=== PATIENT | female | born 1950 | race Caucasian/White ===

== ENCOUNTER → 2017-01-26 | Outpatient (CLI) | payer OTHER, BC ==
--- NOTE | 2017-01-27 07:54 | MAMMOGRAPHY REPORT ---
BILATERAL DIGITAL SCREENING MAMMOGRAM TOMOSYNTHESIS WITH CAD: 01/26/2017 CLINICAL HISTORY: Routine screening. Patient has no complaints. TECHNIQUE: Breast tomosynthesis in addition to standard 2D mammography was performed. Current study was also evaluated with a Computer Aided Detection (CAD) system. COMPARISON: Comparison is made to exams dated: 03/20/2012 mammogram, 03/10/2010 mammogram, 03/28/2014 m ammogram, 04/05/2014 mammogram, 03/26/2013 mammogram, and 03/11/2011 mammogram. BREAST COMPOSITION: There are scattered areas of fibroglandular density in both breasts. FINDINGS: There is a small cluster of microcalcifications in the upper outer middle one third of the left breast, for which additional spot magnification views are recommended. There is evidence of prior bilateral reduction mammoplasty. The glandular pattern is similar to prio r exams. A few other benign-appearing rim calcifications are seen anteriorly in both breasts near th e periareolar incisions. No other suspicious mass, architectural distortion or cluster of microcalcif ications is seen. IMPRESSION: ACR BI-RADS CATEGORY 0: INCOMPLETE EVALUATION: NEED ADDITIONAL IMAGING EVALUATION The small cluster of microcalcifications in the left upper outer quadrant need additional imaging angelic luation. The patient will be called to schedule an appointment. Approximately 10% of breast cancers are not detected with mammography. A negative mammographic report should not delay biopsy if a clinically suggestive mass is present. Jojo Hammond M.D. ay/:01/26/2017 16:15:36 Intelligence Chief: Leila WOODS(R)(M), [facility] letter sent: Addl Imaging 0 BI-RADS Code: ACR BI-RADS Category 0: Incomplete Evaluation: Need Additional Imaging Evaluation
== END | disposition home or self-care (01) ==
LOC: C.MAMM 15:06
PROVIDERS: ATTEND Internal Medicine
DX: Z12.31 Encounter for screening mammogram for malignant neoplasm of breast (principal); R92.0 Mammographic microcalcification found on diagnostic imaging of breast

== ENCOUNTER → 2017-02-02 | Outpatient (CLI) | payer OTHER, BC ==
--- NOTE | 2017-02-02 15:18 | MAMMOGRAPHY REPORT ---
UNILATERAL LEFT DIGITAL DIAGNOSTIC MAMMOGRAM: 02/02/2017 CLINICAL HISTORY: Callback from screening mammogram for left breast calcifications. TECHNIQUE: Spot magnification left CC and ML views were obtained. COMPARISON: Comparison is made to exams dated: 01/26/2017 mammogram - [facility], 04/05/2014 mammogram, 03/28/2014 mammogram, 03/26/2013 mammogram, 03/20/2012 mammogram, and 03/10/2010 mamm ogram. BREAST COMPOSITION: There are scattered areas of fibroglandular density in the left breast. FINDINGS: Spot magnification views of the left breast demonstrate a small 8 mm group of punctate and amorphous calcifications in the left upper outer quadrant. The calcifications are indeterminate and stereotactic biopsy is recommended for further evaluation. A few other scattered benign-appearing ca lcifications are seen in the left breast on the spot magnification views. IMPRESSION: ACR BI-RADS CATEGORY 4: SUSPICIOUS Grouped calcifications in the left upper outer quadrant are indeterminate and stereotactic biopsy is recommended for further evaluation. A phone call was made to the physician's office to confirm faxed results were received. The patient has been verbally notified of the results. She tentatively scheduled the biopsy before leaving the [facility]. Approximately 10% of breast cancers are not detected with mammography. A negative mammographic report should not delay biopsy if a clinically suggestive mass is present. Melany Herrera M.D. /:02/02/2017 14:31:20 Dentistry Professor: Leila Dc [facility] letter sent: Abnormal 4/5 BI-RADS Code: ACR BI-RADS Category 4: Suspicious
== END | disposition home or self-care (01) ==
LOC: C.MAMM 13:35
PROVIDERS: ATTEND Internal Medicine
DX: R92.0 Mammographic microcalcification found on diagnostic imaging of breast (principal); R92.1 Mammographic calcification found on diagnostic imaging of breast

== ENCOUNTER → 2017-02-04 | Outpatient (CLI) | payer OTHER, BC ==
--- NOTE | 2017-02-04 13:07 | Discharge Instructions ---
Discharge Instructions Procedure Procedure Date: Feb 04, 2017. Reason for visit: Left Calcifications. Discharge Discharge Date: Feb 04, 2017. Discharge Diagnosis: status post breast biopsy Instructions Activity Recommendations: Additional Limitations (see below) Return to School/Work: no limitations Recommended Home Diet: No Limitations Provider Instructions: ACTIVITY RECOMMENDATIONS: * No lifting, pushing, pulling or exercising the affected side for three days. RETURN TO SCHOOL/WORK: * You may return to work/school after the procedure, but do not perform any strenuous activities for 24 to 48 hours. MEDICATIONS: * Tylenol (two 325 mg) every four to six hours if needed for mild pain (if not allergic to Tylenol). DIET: * Resume previous diet. SPECIAL CARE INSTRUCTIONS: * Keep biopsy site dry for 24 hours. May shower after 24 hours, but do not soak (bathe) incision. * May remove Tegaderm (plastic patch) tomorrow AFTER showering. * Leave the steri-strips on for one week. Allow the steri-strips to fall off by themselves. If not off after one week, you may remove them. You may place a Bandaid crosswise over the strips, if desired. * Apply ice 10 minutes on and 10 minutes off as needed. * Wear a bra at bedtime to sleep more comfortably for 2-3 days. * Your referring physician should have the results after approximately 5 to 7 business days. * Call for unusual bleeding, fever, drainage, etc or if you have any questions call during normal business hours or after hours call Dr Herrera, . FOLLOW UP VISIT: Follow-up with Referring Physician as scheduled. Ximena Sosa Recommendations: Call your doctor if: * Temperature above 101 degrees * Pain not relieved by pain medicine ordered * There is increased drainage or redness from any incision * You have any unanswered questions or concerns. Your Doctors Instructions noted above were prepared by provider Melany Herrera. Patient Signature Section: Patient Instructions Signature Page Neisha Aguilar Patient (or Guardian) Signature/Date: I have read and understand the instructions given to me by my caregivers. Caregiver/RN/Doctor Signature/Date: The above-named patient and/or guardian has received patient instructions on this date. + Original Patient Signature Page (only) stays with chart. Please make copy for patient.
--- NOTE | 2017-02-04 13:36 | MAMMOGRAPHY REPORT ---
STEREOTACTIC GUIDED BIOPSY LEFT BREAST: 02/04/2017 CLINICAL HISTORY: Indeterminate calcifications in the left upper outer quadrant. PATIENT CONSENT: The procedure, risks, benefits, and alternatives of stereotactic biopsy with clip pl acement were discussed with the patient, and verbal and written consent was obtained. A timeout was performed immediately prior to the procedure. PROCEDURE DESCRIPTION: With stereotactic guidance, aseptic technique, and lidocaine as a local anesth etic (1% lidocaine to anesthetize the skin and 1% lidocaine with epinephrine to anesthetize the deepe r tissues), the calcifications of concern in the left upper outer quadrant sampled multiple times wit h a 9-gauge vacuum-assisted biopsy needle (Threat Stack). The path of approach was lateral. The spec imen radiograph demonstrates calcifications to be present in the samples. A metallic marker clip was placed at the biopsy site. This was confirmed on postprocedure mammograms. Direct pressure was lor lied at the biopsy site and hemostasis was readily achieved. The patient tolerated the procedure wit hout complication. She was given wound care instructions. COMPARISON: Comparison is made to exams dated: 02/02/2017 mammogram, 01/26/2017 mammogram - [facility], 04/05/2014 mammogram, 03/28/2014 mammogram, 03/26/2013 mammogram, and 03/20/2012 mamm ogram. IMPRESSION: STEREOTACTIC GUIDED BIOPSY Stereotactic biopsy of indeterminate calcifications in the left upper outer quadrant, with clip place ment. The patient will receive pathology results from her referring provider. Melany Herrera M.D. ah/:02/04/2017 13:08:24 Attending Technologist: Leila Dc, [facility] Machine Applicator Cementer: Leila WOODS(R)(M), [facility]
--- NOTE | 2017-02-07 07:49 | MAMMOGRAPHY REPORT ---
UNILATERAL LEFT DIGITAL DIAGNOSTIC MAMMOGRAM: 02/04/2017 CLINICAL HISTORY: Status post left breast stereotactic biopsy. TECHNIQUE: Post procedure left CC and ML views were obtained. COMPARISON: Comparison is made to exams dated: 02/02/2017 mammogram, 01/26/2017 mammogram - [facility], 04/05/2014 mammogram, 03/28/2014 mammogram, and 03/26/2013 mammogram. BREAST COMPOSITION: There are scattered areas of fibroglandular density in the left breast. FINDINGS: A new biopsy marker clip is seen at the site of the biopsied calcifications in the left up per outer quadrant. No significant postbiopsy hematoma is seen. IMPRESSION: POST PROCEDURE IMAGING FOR MARKER PLACEMENT New biopsy marker clip status post left breast stereotactic biopsy. Pathology results are pending. Approximately 10% of breast cancers are not detected with mammography. A negative mammographic report should not delay biopsy if a clinically suggestive mass is present. Melany Herrera M.D. ah/:02/04/2017 13:21:48 Hopper Operator: Leila WOODS(Katie)(M), [facility] BI-RADS Code: Post Procedure Imaging For Marker Placement
== END | disposition home or self-care (01) ==
LOC: C.MAMM 12:29
PROVIDERS: ATTEND Internal Medicine
DX: R92.0 Mammographic microcalcification found on diagnostic imaging of breast (principal); N60.12 Diffuse cystic mastopathy of left breast

== ENCOUNTER → 2017-03-08 | Outpatient (CLI) | payer OTHER, BC ==
[2017-03-08 12:32] LABS: HEMATOCRIT 40.6 % (37-47); HEMOGLOBIN 13.8 g/dL (12.0-16.0); MEAN CORPUSCULAR HEMOGLOBIN 30.9 pg (25-34); MEAN PLATELET VOLUME 10.9 fL (7.4-10.4); PLATELET COUNT 295 K/uL (130-400); RED CELL DISTRIBUTION WIDTH SD 46.7 fL (36.4-46.3); WHITE BLOOD COUNT 7.75 K/uL (4.8-10.8)
[2017-03-08 16:19] LABS: ALBUMIN 3.9 gm/dl (3.4-5.0); ALT/SGPT 23 U/L (12-78); AST/SGOT 14 U/L (15-37); BLOOD UREA NITROGEN 15 mg/dl (7-18); CALCIUM 8.9 mg/dl (8.5-10.1); CARBON DIOXIDE 27 mmol/L (21-32); CHOLESTEROL 190 mg/dl (0-200); CREATININE 0.77 mg/dl (0.60-1.20); GLUCOSE 77 mg/dl (70-99); SODIUM 140 mmol/L (136-145)
[2017-03-08 16:28] LABS: ALKALINE PHOSPHATASE 74 U/L (45-117); LDL CHOLESTEROL CALCULATED 98 mg/dl; TOTAL PROTEIN 7.5 gm/dl (6.4-8.2)
== END | disposition home or self-care (01) ==
LOC: C.LABBFT 10:30
PROVIDERS: ATTEND Internal Medicine
DX: E78.00 Pure hypercholesterolemia, unspecified (principal); E03.9 Hypothyroidism, unspecified; R07.9 Chest pain, unspecified

== ENCOUNTER → 2017-04-22 | Outpatient (CLI) | payer OTHER, BC | END | disposition home or self-care (01) | LOC: C.LABBFT 10:06 | PROVIDERS: ATTEND Ophthalmology | DX: H02.403 Unspecified ptosis of bilateral eyelids (principal); E03.9 Hypothyroidism, unspecified ==